=== PATIENT | female | born 1960 | race Caucasian/White ===

== ENCOUNTER → 2018-09-27 16:36 | Outpatient (CLI) | payer OTHER, SELFPAY ==
--- NOTE | 2018-09-27 16:39 | DI.RAD.S_ITS ---
PROCEDURE: XR CHEST 2V INDICATIONS: LEFT RIB AREA PAIN S/P FALL TECHNIQUE: 2 views of the chest were acquired. COMPARISON: [facility], , CHEST 2 VIEW, 05/19/2015, 16:29. FINDINGS: Surgical changes and devices: None. Lungs and pleura: No pleural effusions or pneumothorax. Lungs are clear. Mediastinum: Mediastinal contours are normal. Heart size is normal. Bones and chest wall: No suspicious bony abnormalities. Soft tissues appear unremarkable. IMPRESSION: No acute cardiopulmonary findings. Dictated by: Demetria Palacio M.D. on 09/27/2018 at 16:53 Approved by: Demetria Palacio M.D. on 09/27/2018 at 16:53
== END ==
PROVIDERS: Family Provider Family Medicine; PCP Family Medicine; Visit Provider Family Medicine
DX: R07.81 Pleurodynia (principal)
CPT/HCPCS: 71046

== ENCOUNTER → 2019-07-25 12:08 | Outpatient (CLI) | payer OTHER, SELFPAY ==
--- NOTE | 2019-07-25 | DI.MG.S_ITS ---
BILATERAL DIGITAL SCREENING MAMMOGRAM 3D/2D WITH CAD: 07/25/2019 CLINICAL: Routine screening. Family history of breast cancer. Comparison is made to exams dated: 05/14/2016 mammogram, 03/08/2014 mammogram, and 01/11/2013 mammogram - [facility]. The tissue of both breasts is heterogeneously dense. This may lower the sensitivity of mammography. Current study was also evaluated with a Computer Aided Detection (CAD) system. No significant masses, calcifications, or other findings are seen in either breast. There has been no significant interval change. IMPRESSION: NEGATIVE There is no mammographic evidence of malignancy. A 1 year screening mammogram is recommended. This exam was interpreted at Station ID: [id number]. NOTE: For mammograms, a report in lay terms will be sent to the patient. Approximately 15% of breast malignancies will not be visualized mammographically. In the management of a palpable breast mass, a negative mammogram must not discourage biopsy of a clinically suspicious lesion. Electronically Signed By: Abdi roque/rylan:07/25/2019 19:13:03 letter sent: Normal Exam ACR BI-RADS Category 1: Negative 3341F
== END ==
PROVIDERS: PCP Family Medicine; Visit Provider Family Medicine
DX: Z12.31 Encounter for screening mammogram for malignant neoplasm of breast (principal); Z80.3 Family history of malignant neoplasm of breast
CPT/HCPCS: 77063; 77067

== ENCOUNTER → 2019-07-27 13:42 | Outpatient (CLI) | payer OTHER, SELFPAY ==
--- NOTE | 2019-07-27 | DI.MRI.S_ITS ---
PROCEDURE: MR LUMBAR SPINE WO CON INDICATIONS: LOWER BACK AND LEFT HIP PAIN TECHNIQUE: Noncontrast sagittal T1 spin echo and T2 fast echo, sagittal STIR, axial T1 and T2 fast spin echo through the lumbar spine. In cases with scoliosis, additional coronal T2 fast spin echo may be performed. COMPARISON: [facility], MR, L-SPINE WITHOUT CONTRAST, 11/01/2017, 19:00. FINDINGS: Image quality: Excellent. Alignment and Curvature: Dextroscoliosis of lumbar spine Bone Marrow: No acute fracture. Multilevel degenerative endplate sclerosis and spurring. Diffuse facet arthropathy. Straightening of the normal lordotic curvature. Grade 1 retrolisthesis of L1 on L2, L2 on L3 and L4 on L5 Spinal Cord: Conus medullaris terminates at the T12-L1 level. Visualized cord demonstrates normal signal and size. Paraspinous Soft Tissues: No paravertebral masses. L1-L2: Mild central canal narrowing. Partial effacement of both lateral recesses with asymmetric appearance, left greater than right although unchanged. Moderate left and mild right foraminal narrowing, no interval change. L2-L3: Mild central canal narrowing. Partial effacement of both lateral recesses with asymmetric appearance, left greater right however this appears unchanged. Moderate left foraminal stenosis with nerve root compression. Mild to moderate right foraminal narrowing, no interval change. L3-L4: Severe central canal narrowing which is attributed in part to dorsal epidural lipomatosis broad-based posterior disc bulge. Partial effacement of both lateral recesses with asymmetric appearance, right much greater than left. However this is unchanged since prior study. Moderate to severe left and right foraminal narrowing, although no definite interval progression. L4-L5: Mild central canal narrowing. Partial effacement of both lateral recesses with bilaterally symmetric appearance. Mild left foraminal stenosis. Moderate right foraminal narrowing L5-S1: No central canal or lateral recess narrowing. No foraminal stenosis IMPRESSION: Overall, grossly unchanged examination since 11/01/17 as detailed above by spinal level. Dextroscoliosis as before. Dictated by: Nicolas Ramirez M.D. on 07/27/2019 at 17:13 Approved by: Nicolas Ramirez M.D. on 07/27/2019 at 17:20
--- NOTE | 2019-07-27 | DI.MRI.S_ITS ---
PROCEDURE: MR HIP LT WO CON INDICATIONS: LEFT HIP PAIN TECHNIQUE: Noncontrast coronal T1 spin echo and STIR through the bony pelvis. Coronal and axial T2 fast spin echo with fat saturation, sagittal T1 spin echo, and oblique axial T2 fast spin echo with fat saturation through the hip. COMPARISON: None. FINDINGS: Image quality: Excellent. Bones and joints: Bone marrow of the pelvic ring and proximal femurs show normal signal throughout. No intraosseous lesions or fractures. No avascular necrosis of the femoral heads. Lower lumbar spondylosis and facet arthropathy. Left hip subcutaneous stranding/inflammation of unclear etiology. Tendons and ligaments: The gluteus medius and minimus tendons appear intact, without associated muscle atrophy. The nearby proximal iliotibial band also appears intact. The iliopsoas tendon appears intact, without adjacent bursal fluid collections or evidence for impingement syndrome. The origin of the hamstring tendon is intact at the ischial tuberosity, as well as the associated sacrotuberous ligament. The straight and reflected heads of the rectus femoris muscle origin appear intact, as well as the conjoint tendon. The ligamentum teres appears intact where visualized. Labrum and cartilage: Irregular appearance of the anterosuperior acetabular labrum with internal T2 hyperintense signal, although does not meet strict MR criteria for tear. Additionally, no adjacent chondral loss. The alpha angle of the femur is within normal limits at less than 55 degrees. Soft tissues: Visualized muscles demonstrate normal bulk and internal signal. Quadratus femoris muscle demonstrates no internal edema to suggest ischiofemoral impingement. The proximal sciatic neurovascular bundle appears normal adjacent to the hamstring tendons. No free pelvic fluid. Bladder wall thickness is normal. Genitourinary structures and bowel loops appear normal where visualized. IMPRESSION: Left hip subcutaneous stranding and inflammation of unknown etiology. Please correlate clinically. Probable degenerative signal change involving anterosuperior labrum although does not meet strict MR criteria for tear. Dictated by: Nicolas Ramirez M.D. on 07/27/2019 at 16:02 Approved by: Nicolas Ramirez M.D. on 07/27/2019 at 16:11
== END ==
PROVIDERS: PCP Family Medicine; Visit Provider Family Medicine
DX: M25.552 Pain in left hip (principal); M54.5 Low back pain; M41.9 Scoliosis, unspecified; M48.061 Spinal stenosis, lumbar region without neurogenic claudication
CPT/HCPCS: 72148; 73721

== ENCOUNTER → 2019-08-17 13:46 | Outpatient (CLI) | payer OTHER, SELFPAY | PROVIDERS: PCP Family Medicine; Visit Provider Internal Medicine Rheumatology | DX: M81.0 Age-related osteoporosis without current pathological fracture (principal); Z78.0 Asymptomatic menopausal state; F17.200 Nicotine dependence, unspecified, uncomplicated; Z79.899 Other long term (current) drug therapy | CPT/HCPCS: 77080 ==

== ENCOUNTER → 2021-01-06 16:21 | Outpatient (CLI) | payer OTHER, SELFPAY ==
--- NOTE | 2021-01-06 16:29 | DI.RAD.S_ITS ---
PROCEDURE: XR FOOT RT MIN 3V INDICATIONS: B/L FEET PAIN TENDER 5TH MTPS,RA TECHNIQUE: 3 views of the foot were acquired. COMPARISON: [facility], CR, XR FOOT LT MIN 3V, 01/06/2021, 16:31. FINDINGS: Bones: No fractures or dislocations. No suspicious bony lesions. Mild interphalangeal joint space narrowing with periarticular osteophyte formation. Erosive changes involving the 1st interphalangeal joint and the 4th and 5th MTP joints. Soft tissues: No tibiotalar joint effusion. Achilles tendon appears normal. IMPRESSION: Sequela of radiographic findings suspicious for inflammatory arthropathy. Dictated by: Marky PETERSON Interpreted: Ying Chen MD on 01/06/2021 at 16:55 Approved by: Ying Chen M.D. on 01/07/2021 at 10:10
--- NOTE | 2021-01-06 16:29 | DI.RAD.S_ITS ---
PROCEDURE: XR FOOT LT MIN 3V INDICATIONS: B/L FEET PAIN/TENDER 5TH MTPS/RA TECHNIQUE: 3 views of the foot were acquired. COMPARISON: [facility], CR, XR FOOT RT MIN 3V, 01/06/2021, 16:31. FINDINGS: Bones: No fractures or dislocations. No suspicious bony lesions. Mild diffuse interphalangeal joint space narrowing. Erosive changes involving the 5th MTP joint. Soft tissues: No tibiotalar joint effusion. Achilles tendon appears normal. IMPRESSION: Diffuse joint narrowing the interphalangeal joints and erosive changes of the 5th MCP joint. Inflammatory arthropathy cannot be excluded. Dictated by: Marky PETERSON Interpreted: Ying Chen MD on 01/06/2021 at 16:53 Approved by: Ying Chen M.D. on 01/06/2021 at 17:00
== END ==
PROVIDERS: PCP Family Medicine; Referring Provider Internal Medicine Rheumatology; Visit Provider Internal Medicine Rheumatology
DX: M79.671 Pain in right foot (principal); M79.672 Pain in left foot
CPT/HCPCS: 73630

== ENCOUNTER → 2021-01-29 15:26 | Outpatient (CLI) | payer OTHER, SELFPAY ==
[2021-01-29] MEDS: COVID-19 VACC #1, MRNA(MOD) 100 MCG/0.5 ML VIAL IM (15:31)
== END ==
PROVIDERS: PCP Family Medicine; Visit Provider Internal Medicine
DX: Z23 Encounter for immunization (principal)
CPT/HCPCS: 0011A; 91301

== ENCOUNTER → 2021-02-26 15:36 | Outpatient (CLI) | payer OTHER, SELFPAY ==
[2021-02-26] MEDS: COVID-19 VACC #2, MRNA(MOD) 100 MCG/0.5 ML VIAL IM (15:49)
== END ==
PROVIDERS: PCP Family Medicine; Visit Provider Internal Medicine
DX: Z23 Encounter for immunization (principal)
CPT/HCPCS: 0012A; 91301

== ENCOUNTER → 2021-08-01 15:05 | Outpatient (CLI) | payer OTHER, SELFPAY ==
--- NOTE | 2021-08-01 15:07 | DI.MG.S_ITS ---
BILATERAL DIGITAL SCREENING MAMMOGRAM 3D/2D WITH CAD: 08/01/2021 CLINICAL: Routine screening. Family history of breast cancer. Comparison is made to exams dated: 07/25/2019 mammogram, 05/14/2016 mammogram, and 03/08/2014 mammogram - [facility]. The tissue of both breasts is heterogeneously dense. This may lower the sensitivity of mammography. Current study was also evaluated with a Computer Aided Detection (CAD) system. No significant masses, calcifications, or other findings are seen in either breast. There has been no significant interval change. IMPRESSION: NEGATIVE There is no mammographic evidence of malignancy. A 1 year screening mammogram is recommended. This exam was interpreted at Station ID: [id number]. NOTE: For mammograms, a report in lay terms will be sent to the patient. Approximately 15% of breast malignancies will not be visualized mammographically. In the management of a palpable breast mass, a negative mammogram must not discourage biopsy of a clinically suspicious lesion. Electronically Signed By: Jasvir Sy acr/rylan:08/03/2021 07:52:55 letter sent: Normal Exam ACR BI-RADS Category 1: Negative 3341F
== END ==
PROVIDERS: PCP Family Medicine; Referring Provider Family Medicine; Visit Provider Family Medicine
DX: Z12.31 Encounter for screening mammogram for malignant neoplasm of breast (principal)
CPT/HCPCS: 77063; 77067

== ENCOUNTER → 2022-01-26 10:40 | Outpatient (ROUT) | payer OTHER, SELFPAY ==
[2022-01-26 10:50] LABS: Add Manual Diff / Slide Review NO; Basophils Absolute Auto 0 /uL (0-100); Basophils Percent Auto 0.6 % (0-2); Eosinophils Absolute Auto 100 /uL (0-450); Eosinophils Percent Auto 1.8 % (2-4); Hemoglobin 13.3 g/dL (12.0-16.0); Lymphocytes Absolute Auto 900 /uL (1100-4500); Lymphocytes Percent Auto 12.2 % (25-40); Mean Corpuscular HGB Conc 34.2 % (30-36); Mean Corpuscular Hemoglobin 33.2 PG (26-34); Monocytes Absolute Auto 600 /uL (0-900); Monocytes Percent Auto 8.1 % (3-14); Neutrophils Absolute Auto 5700 /uL (1500-7000); Neutrophils Percent Auto 77.3 % (50-75); Platelet Count 387 X10^3/uL (150-400); Red Blood Cell Count 4.02 X10^6/uL (4.0-5.2); Red Cell Distribution Width 13.2 % (11.6-14.8); White Blood Cell Count 7.4 X10^3/uL (4.5-11.0)
[2022-01-26 11:58] LABS: Vitamin B12 626 pg/mL (239-931)
== END ==
PROVIDERS: PCP Family Medicine; Visit Provider Family Medicine
DX: E53.8 Deficiency of other specified B group vitamins (principal)
CPT/HCPCS: 82607; 85025

== ENCOUNTER → 2022-03-25 11:13 | Outpatient (CLI) | payer OTHER, SELFPAY ==
[2022-03-25 12:14] LABS: COVID19 -Nasal RAPID Negative (Negative)
== END ==
PROVIDERS: PCP Family Medicine; Visit Provider Surgery
DX: Z20.822 Contact with and (suspected) exposure to COVID-19 (principal); Z01.812 Encounter for preprocedural laboratory examination
CPT/HCPCS: 87635; C9803

== ENCOUNTER 2022-03-26 07:33 | Day surgery (SDC) | payer OTHER, SELFPAY ==
[2022-03-26] VITALS (7 sets, daily range): BP systolic 109–122; BP diastolic 62–74; PULSE 71–96; RESP 12–20; TEMP 36.7; O2SAT 95–99
[2022-03-26] MEDS: LACTATED RINGERS 1,000 ML 200 ML IV (08:23)
--- NOTE | 2022-03-26 09:05 | PM.HP.1 ---
History of Present Illness History of Present Illness Date Patient Seen: 03/26/22 Time Patient Seen: 09:05 Chief complaint: SDC Narrative: screening for colon cancer. Last scope was 10 years ago, no symptoms or family history. Patient History Family & Social History Social History: household members spouse Tobacco & Substance use: Smoking Status Never smoker alcohol intake frequency holiday/special occasion Substance Use Type does not use Meds Home Medications and Allergies Home Medications Medication Instructions Recorded Confirmed Type CHOLECALCIFEROL (VITAMIN D3) 400 iu PO QDAY #0 06/08/13 History (Vitamin D3) FOLIC ACID (Folic Acid) 1 mg PO QDAY #0 06/08/13 History IBUPROFEN (#MOTRIN) 600 mg PO QIDPRN #0 06/08/13 History [OMEGA-3 ] #0 06/08/13 History [PROBIOTIC] #0 06/08/13 History [TRANSDERMAL COMPOUND] #0 06/08/13 History adalimumab 40 mg/0.8 mL 40 mg MR #0 06/08/13 History subcutaneous syringe kit (Humira) hydrocodone 5 mg-acetaminophen 300 0 tab PO Q6HP #0 06/08/13 History mg tablet (Vicodin) methotrexate sodium 2.5 mg tablet 2.5 mg PO Q7D@0900 #0 06/08/13 History oxycodone-acetaminophen 5 mg-325 1 tab PO Q4HP PRN #20 tab 01/08/18 Rx mg tablet (Percocet) Allergies Allergy/AdvReac Type Severity Reaction Status Date / Time Sulfa (Sulfonamide Allergy Unknown Verified 03/26/22 07:58 Antibiotics) [SULFA (SULFONAMIDE ANTIBIOTICS)] valdecoxib [From BEXTRA] Allergy Unknown Verified 03/26/22 07:58 Review of Systems Review of Systems ROS: Yes All systems reviewed with the patient and are negative except as otherwise documented Exam Vital Signs (past 8 hours): - 03/26/22 08:18 Temperature 98.1 F Pulse Rate 96 H Respiratory Rate 20 Blood Pressure 121/74 Pulse Oximetry 98 Oxygen Delivery Method Room Air Const General: cooperative and healthy appearing Orientation: alert, awake and oriented x3 HENMT Head: normocephalic and atraumatic Face and sinus: normal facial exam Eyes Periorbital: periorbital findings normal Sclera: sclerae normal Neck Neck: full ROM and trachea midline Chest Chest: normal inspection of the chest Resp Effort & Inspection: normal respiratory effort and able to speak in complete sentences Cardio Rate: regular rate Rhythm: regular rhythm GI Inspection: normal to inspection Palpation: soft Skin General: no rashes or lesions noted and atrophy Neuro General: patient alert, patient awake and patient oriented x3 Cognition: normal cognition Extrem General: full ROM Psych Appearance: grossly normal Mental Status: mental status grossly normal Attitude: cooperative Judgment: judgment good Assessment & Plan Assessment & Plan narrative: Screening colonoscopy colonoscopy with sedation COVID-19 COVID-19 status: Negative Time Spent With Patient Time with patient: less than 30 minutes Critical Care time: I spent a total of [] minutes of critical care time on this patient's care today; this time is exclusive of procedural time.
--- NOTE | 2022-03-26 09:15 | P.OP.COLON_ITS ---
Operative Date/Time/Diagnoses Date of procedure: 03/26/22 Time of procedure: 09:15 Pre-op diagnosis: screening for colon cancer Post-op diagnosis: same Procedure & Clinicians Study performed: colonoscopy with sedation Same procedure as scheduled: Yes Indications: screening for colon cancer Surgeon: Madelyn Rowland Procedure Notes SCOAP/Timeout: done Procedure in detail: Preop diagnosis: Screening colonoscopy Postop diagnosis: Same Operative procedure: Colonoscopy with moderate sedation Surgeon: Luh Rowland MD Anesthetic: Versed 9 mg, fentanyl 125 mcg Findings: Flattening of the mucosa, very little motility. No diverticulosis, no polyps. Procedure: Patient placed in lateral position. Rectal exam is was performed showing normal tone no polyps. No rectal masses. Scope inserted in the rectum advanced to ileocecal valve with minimal difficulty. Insufflation extraction scope and the above findings. Retroflexed was included in the cecum as well as the rectum. Impression: Normal colonoscopy with the exception of notable loss of motility consistent with long-term narcotic use. No diverticulosis, no polyps Plan repeat colonoscopy in 10 years unless otherwise indicated by change in c linical condition Sedation minutes: 20 Specimen(s): none sent Complications: none Impression: No polyps no diverticulosis repeat colonoscopy in 10 years Post-procedure Recommendations: Colonoscopy in 10 years Plan for aftercare: Home Follow up: as needed Disposition: PACU
[2022-03-26] MEDS: fentaNYL 250 MCG/5 ML INJ 125 MCG IV (09:33)
[2022-03-26] MEDS: MIDAZOLAM 5 MG/5 ML VIAL 9 MG IV (09:33)
--- NOTE | 2022-03-26 09:59 | PM.OP.COLON ---
Operative Date/Time/Diagnoses Date of procedure: 03/26/22 Time of procedure: 09:59 Pre-op diagnosis: positive FIT test Post-op diagnosis: same Procedure & Clinicians Study performed: colonoscopy Indications: Positive FIT test Surgeon: Madelyn Rowland Procedure Notes SCOAP/Timeout: done
== END 2022-03-26 10:25 | disposition home or self-care (01) ==
PROVIDERS: PCP Family Medicine; Referring Provider Surgery; Visit Provider Surgery
PROC: 0DJD8ZZ Inspection of Lower Intestinal Tract, Via Natural or Artificial Opening Endoscopic (ICD-10-PCS; CPT 45378; principal; 2022-03-26 09:15)
DX: Z12.11 Encounter for screening for malignant neoplasm of colon (principal)
CPT/HCPCS: 45378; 99152; J2250; J3010

== ENCOUNTER 2022-07-01 18:44 | Emergency (ER) | payer OTHER, SELFPAY ==
[2022-07-01 18:45] VITALS: BP 170/80; PULSE 100; RESP 14; TEMP 36.9; O2SAT 96; BMI 20.6
--- NOTE | 2022-07-01 18:47 | DI.RAD.S_ITS ---
PROCEDURE: XR WRIST LT MIN 3V INDICATIONS: Fall TECHNIQUE: 3 views of the wrist were acquired. COMPARISON: None. FINDINGS: Bones: Mildly displaced and dorsally angulated distal radius fracture extending into the distal radioulnar joint and possibly radial carpal joint. There is a mildly displaced ulnar styloid fracture. Soft tissues: No suspicious soft tissue calcifications. IMPRESSION: Comminuted intra-articular distal radius fracture. Ulnar styloid fracture. Dictated by: Humble Hassan M.D. on 07/01/2022 at 19:14 Approved by: Humble Hassan M.D. on 07/01/2022 at 19:15
--- NOTE | 2022-07-01 19:03 | ED.UPPEXIN ---
HPI - Extremity Injury (Upper) General Chief Complaint: Extremity Injury, Upper Stated Complaint: Thinks left wrist broken Time Seen by Provider: 07/01/22 19:02 Source: patient Mode of arrival: Ambulatory Limitations: no limitations History of Present Illness HPI narrative: This is a 61-year-old female with complaint of ground level fall in potentially broken left wrist. Patient states she was gardening she fell backwards on an outstretched hand and has pain at her left wrist. No numbness or tingling appreciated. It does hurt for her to flex or extend her fingers but she can. She does not appreciate weakness. Patient states she has a history of rheumatoid arthritis, she is had fusion of her right wrist. She is broken her left shoulder before. She states she is on medications for her rheumatoid including methotrexate. Patient states she is allergic to sulfa and valdecoxib. Patient [address] on [facility] [address] She drove herself today. Related Data Home Medications Medication Instructions Recorded Confirmed CHOLECALCIFEROL (VITAMIN D3) 400 iu PO QDAY ##0 06/08/13 (Vitamin D3) FOLIC ACID (Folic Acid) 1 mg PO QDAY ##0 06/08/13 IBUPROFEN (#MOTRIN) 600 mg PO QIDPRN ##0 06/08/13 [OMEGA-3 ] ##0 06/08/13 [PROBIOTIC] ##0 06/08/13 [TRANSDERMAL COMPOUND] ##0 06/08/13 adalimumab 40 mg/0.8 mL 40 mg MR ##0 06/08/13 subcutaneous syringe kit (Humira) hydrocodone 5 mg-acetaminophen 300 0 tab PO Q6HP ##0 06/08/13 mg tablet (Vicodin) methotrexate sodium 2.5 mg tablet 2.5 mg PO Q7D@0900 ##0 06/08/13 Previous Rx's Medication Instructions Recorded oxycodone-acetaminophen 5 mg-325 1 tab PO Q4HP PRN #20 tabs 01/08/18 mg tablet (Percocet) hydrocodone 5 mg-acetaminophen 325 1 tab PO Q6H PRN pain #14 tabs 07/01/22 mg tablet Allergies Allergy/AdvReac Type Severity Reaction Status Date / Time Sulfa (Sulfonamide Allergy Unknown Verified 07/01/22 18:51 Antibiotics) [SULFA (SULFONAMIDE ANTIBIOTICS)] valdecoxib [From BEXTRA] Allergy Unknown Verified 07/01/22 18:51 Review of Systems Review of Systems ROS Unobtainable: All systems reviewed & are unremarkable except as noted in HPI and below Patient History Social History household members: spouse Smoking Status: Current every day smoker Smoking Status: Current every day smoker alcohol intake frequency: holidays/special occasions only Substance Use Type: does not use Exam Narrative Exam Narrative: GENERAL: Alert and oriented x three, female in mild distress. HEENT: Head normocephalic, atraumatic, EOMI, pupils reactive, face symmetric, moist mucous membranes NECK: Supple, full range of motion CARDIOVASCULAR: Regular rate and rhythm without murmurs, rubs or gallops. RESPIRATORY: Breath sounds equal bilaterally, no wheezes rales or rhonchi. ABDOMEN: Soft, nontender. Normoactive bowel sounds all 4 quadrants. No guarding or rebound, rigidity, no mass : No CVA tenderness EXTREMITIES: Normal range of motion, no clubbing. Neurovascularly intact. Patient has mild edema of her left hand. She has swelling at the distal wrist. She is tender over the radius and ulna. 2+ radial pulse. Full flexion extension of the fingers with no issues with adduction or abduction. She has sensation in all 5 fingers with cap refill less than 2 seconds. NEUROLOGICAL: Cranial nerves II through XII grossly intact. Moving all extremities SKIN: Warm, dry, no petechiae, no rashes or lesions. Initial Vital Signs Initial Vital Signs: Vital Signs Temperature 98.4 F 07/01/22 18:45 Pulse Rate 100 H 07/01/22 18:45 Respiratory Rate 14 07/01/22 18:45 Blood Pressure 170/80 H 07/01/22 18:45 Pulse Oximetry 96 07/01/22 18:45 Oxygen Delivery Method 07/01/22 18:45 Procedures Nerve Block Nerve Block 1: Time of procedure: 19:45 Time out performed: Yes Local Anesthetic: lidocaine 1% and with bicarb Amount of anesthesia used (mL): 4 Side: left Nerve Blocks: hematoma block (left distal radius) Procedure Successful: Yes Patient Tolerated Procedure: Well Complications: none Orthopedic Splinting/Casting Injury #1: Time of procedure: 20:00 Side: left Upper Extremity Injury Location: wrist Upper Extremity Immobilizer: sling/shoulder immobilizer and sugar tong splint Post splinting neuro exam: intact Post splinting vascular exam: intact Placed by: Provider Course Orders Ordered: ED Orders 07/01/22 18:47 XR wrist LT min 3V Stat Discontinued Medications Hydrocodone Bitart/Acetaminophen (Hydrocodone/Acet 5/325 Prepack) 1 bottle MISC SEEINSTR ONE Stop: 07/01/22 20:00 Last Admin: 07/01/22 20:05 Dose: 1 bottle Documented By: DANIKA Lidocaine/Sodium Bicarbonate (Lido 1%/Sod Bicarb 8.4% (10ml) 10 Ml Syringe) 10 ml INJ NOW ONE Stop: 07/01/22 19:27 Last Admin: 07/01/22 19:32 Dose: 10 ml Documented By: DANIKA Vital Signs Vital signs: Vital Signs - 8 hr 07/01/22 18:45 07/01/22 20:03 Temperature 98.4 F Pulse Rate 100 H 82 Respiratory Rate 14 Blood Pressure 170/80 H 164/84 H Pulse Oximetry 96 96 Oxygen Delivery Method Room Air Room Air MDM - Extremity Injury (Upper) Imaging Data Extremity x-ray #1: Radiologist's Impression: [address] [address] XRay Report Signed Patient: Irina Gómez MR#: [id number] : 1960 Acct:[id number] Age/Sex: 61 / F Date of Service: 07/01/22 Loc: ED Accession Number: [id number] ?? Procedure: XR wrist LT min 3V Ordering Provider: Leti Hanna D.O. PROCEDURE:? XR WRIST LT MIN 3V ? INDICATIONS: Fall ? TECHNIQUE:? 3 views of the wrist were acquired.? ? COMPARISON:? None. ? FINDINGS:? ? Bones:? Mildly displaced and dorsally angulated distal radius fracture extending into the distal radioulnar joint and possibly radial carpal joint.? There is a mildly displaced ulnar styloid fracture. ? Soft tissues:? No suspicious soft tissue calcifications.? ? IMPRESSION:? Comminuted intra-articular distal radius fracture.? Ulnar styloid fracture.? Dictated by: Humble Hassan M.D. on 07/01/2022 at 19:14 ? ? Approved by: Humble Hassan M.D. on 07/01/2022 at 19:15?? MDM Narrative Medical decision making narrative: This is a 61-year-old female comes emergency department with left wrist injury she has fracture of the distal ulna and radius. Some angulation. Patient had a hematoma block placed with direct pressure over the angulated portion and patient was placed in a sugar-tong splint. She tolerated this well. Plan for follow-up with orthopedic surgery. Patient is neurovascularly intact. Discharge Plan Departure Patient Disposition: Home Clinical Impression: Distal radial fracture, Fracture of ulnar styloid Instructions: DI for Wrist Fracture Activity Restrictions/Additional Instructions: Follow-up with orthopedic surgery. Call tomorrow for an appointment in the next week. Referral is included below. You may take Tylenol up to a 1000 mg every 6 hours and/or ibuprofen up to 600 mg every 6 hours as needed. If inadequate for pain you can take narcotic pain medication as prescribed. But do not take Tylenol with this medication. This medication can make you sleepy do not drive, perform hazardous activities or make any major decisions while taking it. This medication will make you constipated please take a stool softener once to twice daily until stools are soft and regular. Prescription sent to [facility]. Splint Care: Keep splint clean and dry. Elevated affected body part to decrease swelling. OK to use ice pack on the affected body part. Use for 15-20 minutes each time, for 5-6x per day. If you develop worsening pain, numbness, tingling, discoloration of the affected body part, loosen the splint by loosening the LUDY wrap, and either see your doctor for an urgent re-assessment, or return to the Emergency Department. Return to the Emergency Department for any new or worsening symptoms. Prescriptions: New hydrocodone-acetaminophen 5-325 mg tablet 1 tab PO Q6H PRN (Reason: pain) Qty: 14 0RF No Action methotrexate sodium 2.5 MG tablet 2.5 mg PO Q7D@0900 Qty: 0 adalimumab [Humira] 40 MG/0.8 ML syringe kit 40 mg MR Qty: 0 hydrocodone-acetaminophen [Vicodin] 5 MG/300 MG tablet 0 tab PO Q6HP Qty: 0 CHOLECALCIFEROL (VITAMIN D3) (Vitamin D3) 400 iu PO QDAY Qty: 0 FOLIC ACID (Folic Acid) 1 mg PO QDAY Qty: 0 IBUPROFEN (#MOTRIN) 600 mg PO QIDPRN Qty: 0 [OMEGA-3 ] Qty: 0 [PROBIOTIC] Qty: 0 [TRANSDERMAL COMPOUND] Qty: 0 oxycodone-acetaminophen [Percocet] 5 MG/325 MG tablet 1 tab PO Q4HP PRNQty: 20 0RF Referrals: Jose Yu MD [Physician] - Whit Chamorro MD [Primary Care Provider] - Visit Report Forms: Patient Portal/API
[2022-07-01] MEDS: LIDO 1%/SOD BICARB 8.4% (10ML) 10 ML SYRINGE INJ (19:32)
--- NOTE | 2022-07-01 19:43 | PC.NURSE ---
With patient's expressed permission, cut her ring off her finger and gave it to her.
[2022-07-01 20:03] VITALS: BP 164/84; PULSE 82; O2SAT 96
[2022-07-01] MEDS: HYDROCODONE/ACET 5/325 PREPACK 1 BOTTLE MISC (20:05)
== END 2022-07-01 20:06 | disposition home or self-care (01) ==
PROVIDERS: Emergency Provider Emergency Medicine; PCP Family Medicine
DX: S52.572A Other intraarticular fracture of lower end of left radius, initial encounter for closed fracture (principal); S52.612A Displaced fracture of left ulna styloid process, initial encounter for closed fracture; M06.9 Rheumatoid arthritis, unspecified; W18.30XA Fall on same level, unspecified, initial encounter; Y93.H2 Activity, gardening and landscaping; Z79.899 Other long term (current) drug therapy
CPT/HCPCS: 29125; 64450; 73110; 99283; 99284

== ENCOUNTER → 2022-08-04 14:03 | Outpatient (CLI) | payer OTHER, SELFPAY ==
--- NOTE | 2022-08-04 14:04 | DI.MG.S_ITS ---
BILATERAL DIGITAL SCREENING MAMMOGRAM 3D/2D WITH CAD: 08/04/2022 CLINICAL: Routine screening. Family history of breast cancer. Comparison is made to exams dated: 08/01/2021 mammogram, 07/25/2019 mammogram, 05/14/2016 mammogram, and 03/08/2014 mammogram - [facility]. Both breasts are heterogeneously dense, which may obscure small masses (category c / 51-75% glandular tissue). Current study was also evaluated with a Computer Aided Detection (CAD) system. No significant masses, calcifications, or other findings are seen in either breast. There has been no significant interval change. IMPRESSION: NEGATIVE There is no mammographic evidence of malignancy. A 1 year screening mammogram is recommended. Based on the Tyrer Cuzick model (a risk assessment model) the patient's lifetime risk is 10.2% and her 10 year risk is 4.4%. According to the ACR, ACS, and NCCN guidelines, an annual breast MRI exam along with mammogram is recommended if the patient's lifetime risk is 20% or greater. This exam was interpreted at Station ID: [id number]. NOTE: For mammograms, a report in lay terms will be sent to the patient. Approximately 15% of breast malignancies will not be visualized mammographically. In the management of a palpable breast mass, a negative mammogram must not discourage biopsy of a clinically suspicious lesion. Electronically Signed By: Abdi roque/rylan:08/04/2022 15:49:54 letter sent: Normal Exam ACR BI-RADS Category 1: Negative [id number]
== END ==
PROVIDERS: PCP Family Medicine; Referring Provider Family Medicine; Visit Provider Family Medicine
DX: Z12.31 Encounter for screening mammogram for malignant neoplasm of breast (principal); Z80.3 Family history of malignant neoplasm of breast
CPT/HCPCS: 77063; 77067

== ENCOUNTER → 2023-06-02 14:22 | Outpatient (CLI) | payer OTHER, SELFPAY ==
--- NOTE | 2023-06-02 | DI.RAD.S_ITS ---
PROCEDURE: XR HAND RT MIN 3V INDICATIONS: RA PAIN IN WRISTS TECHNIQUE: 3 views of the hand(s) acquired. COMPARISON: [facility], CR, XR HAND LT MIN 3V, 06/02/2023, 14:43. FINDINGS: Bones: No fractures or dislocations. Carpal bones are normally aligned. No suspicious bony lesions. Osteopenia. Carpal joint space narrowing with associated osteophytosis and subchondral cystic change. Mild interphalangeal joint space narrowing with associated osteophytosis. Soft tissues: No suspicious soft tissue calcifications. IMPRESSION: Severe wrist osteoarthritis. Dictated by: Henry Babcock M.D. on 06/02/2023 at 16:48 Approved by: Henry Babcock M.D. on 06/02/2023 at 16:49
--- NOTE | 2023-06-02 | DI.RAD.S_ITS ---
PROCEDURE: XR FOOT LT MIN 3V INDICATIONS: RA PAIN IN FOOT TECHNIQUE: 3 views of the foot were acquired. COMPARISON: [facility], CR, XR FOOT RT MIN 3V, 01/06/2021, 16:31. FINDINGS: Bones: No fractures or dislocations. No suspicious bony lesions. There is a slight appearance of erosive remodeling within the distal aspect of the 5th metatarsal. Scattered IP changes are present. Soft tissues: No tibiotalar joint effusion. Achilles tendon appears normal. Mild soft tissue prominence is present adjacent to the 5th MTP joint. IMPRESSION: Slight appearance of erosive remodeling of the distal 5th metatarsal with adjacent soft tissue edema. Overall appearance is suggestive of arthritis. Dictated by: Marlin Dela Cruz M.D. on 06/02/2023 at 16:39 Approved by: Marlin Dela Cruz M.D. on 06/02/2023 at 16:40
--- NOTE | 2023-06-02 14:34 | DI.RAD.S_ITS ---
PROCEDURE: XR WRIST RT MIN 3V INDICATIONS: RA PAIN IN WRISTS TECHNIQUE: 4 views of the wrist were acquired. COMPARISON: [facility], CR, XR WRIST LT MIN 3V, 06/02/2023, 14:43. [facility], CR, XR WRIST LT MIN 3V, 07/01/2022, 18:46. FINDINGS: Bones: No definite acute fracture or dislocation identified. The bones appear demineralized. Productive changes about the distal ulna. Joint space loss, sclerosis, lucency present throughout multiple carpal bones, erosive change and/or subchondral cystic change possible. Soft tissues: No suspicious soft tissue calcifications. IMPRESSION: No acute fracture or dislocation identified. Deformity of the wrist with pronounced joint space loss, bony lucencies, and sclerosis may be related to provided history of rheumatoid arthritis. Dictated by: Dillon Florentino M.D. on 06/02/2023 at 20:01 Approved by: Dillon Florentino M.D. on 06/02/2023 at 20:05
--- NOTE | 2023-06-02 14:35 | DI.RAD.S_ITS ---
PROCEDURE: XR HAND LT MIN 3V INDICATIONS: RA PAIN IN WRISTS TECHNIQUE: 3 views of the hand(s) acquired. COMPARISON: None. FINDINGS: Bones: No fractures or dislocations. Carpal bones are normally aligned. No suspicious bony lesions. Interphalangeal joint space narrowing with osteophytosis. Soft tissues: No suspicious soft tissue calcifications. IMPRESSION: Mild interphalangeal osteoarthritis. Dictated by: Henry Babcock M.D. on 06/02/2023 at 16:36 Approved by: Henry Babcock M.D. on 06/02/2023 at 16:37
--- NOTE | 2023-06-02 14:35 | DI.RAD.S_ITS ---
PROCEDURE: XR WRIST LT MIN 3V INDICATIONS: RA PAIN IN WRISTS TECHNIQUE: 4 views of the wrist were acquired. COMPARISON: [facility], , XR WRIST LT MIN 3V, 07/01/2022, 18:46. FINDINGS: Bones: ORIF of the distal radius is present. There is good anatomic alignment of previous fracture. Hardware is intact. Fracture lucencies are no longer visualized. Scaphoid view: No visualized fracture. Minimal radiocarpal narrowing. Soft tissues: No suspicious soft tissue calcifications. IMPRESSION: ORIF of the distal radius. Minimal radiocarpal narrowing. Dictated by: Marlin Dela Cruz M.D. on 06/02/2023 at 16:24 Approved by: Marlin Dela Cruz M.D. on 06/02/2023 at 16:32
--- NOTE | 2023-06-02 14:36 | DI.RAD.S_ITS ---
PROCEDURE: XR FOOT RT MIN 3V INDICATIONS: RA PAIN IN FOOT TECHNIQUE: 3 views of the foot were acquired. COMPARISON: [facility], CR, XR FOOT RT MIN 3V, 01/06/2021, 16:31. FINDINGS: Bones: No fractures or dislocations. No suspicious bony lesions. Scattered IP narrowing is present. There is mild erosive deformity at the distal aspect of the 5th metatarsal and to a lesser degree the 4th metatarsal. This is progressive compared to prior exam. Soft tissues: No tibiotalar joint effusion. Achilles tendon appears normal. Prominent soft tissue edema is adjacent to the 5th MTP joint. IMPRESSION: Erosive appearance at the distal 4th and 5th metatarsal suggestive of erosive arthritis. Soft tissue prominence is present adjacent to the 1st MTP joint. Dictated by: Marlin Dela Cruz M.D. on 06/02/2023 at 16:32 Approved by: Marlin Dela Cruz M.D. on 06/02/2023 at 16:33
== END ==
PROVIDERS: PCP Family Medicine; Referring Provider Internal Medicine Rheumatology; Visit Provider Internal Medicine Rheumatology
DX: M06.09 Rheumatoid arthritis without rheumatoid factor, multiple sites (principal); M19.042 Primary osteoarthritis, left hand; M19.031 Primary osteoarthritis, right wrist; Z87.81 Personal history of (healed) traumatic fracture
CPT/HCPCS: 73110; 73130; 73630

== ENCOUNTER → 2023-08-10 12:19 | Outpatient (CLI) | payer OTHER, SELFPAY ==
--- NOTE | 2023-08-10 | DI.MG.S_ITS ---
BILATERAL DIGITAL SCREENING MAMMOGRAM 3D/2D WITH CAD: 08/10/2023 CLINICAL: Routine screening. Family history of breast cancer. Comparison is made to exams dated: 08/04/2022 mammogram, 08/01/2021 mammogram, and 07/25/2019 mammogram - [facility]. Both breasts are heterogeneously dense, which may obscure small masses (category c / 51-75% glandular tissue). Current study was also evaluated with a Computer Aided Detection (CAD) system. No significant masses, calcifications, or other findings are seen in either breast. There has been no significant interval change. IMPRESSION: NEGATIVE There is no mammographic evidence of malignancy. A 1 year screening mammogram is recommended. Based on the Tyrer Cuzick model (a risk assessment model) the patient's lifetime risk is 9.9% and her 10 year risk is 4.4%. According to the ACR, ACS, and NCCN guidelines, an annual breast MRI exam along with mammogram is recommended if the patient's lifetime risk is 20% or greater. This exam was interpreted at Station ID: [id number]. NOTE: For mammograms, a report in lay terms will be sent to the patient. Approximately 15% of breast malignancies will not be visualized mammographically. In the management of a palpable breast mass, a negative mammogram must not discourage biopsy of a clinically suspicious lesion. Electronically Signed By: Dillon pires/rylan:08/10/2023 15:07:39 letter sent: Normal Exam ACR BI-RADS Category 1: Negative 3341F
--- NOTE | 2023-08-10 | DI.RAD.S_ITS ---
Bone Density Report Name: CHAVO SCHROEDER Age: 62 Sex: Female Ethnicity: White Date of : 1960 Indication: postmenopausal osteoporosis; Referring Provider: HERB BAIRES Study: Bone densitometry was performed. Exam Date: August 10, 2023 Accession number: [id number] Bone Density: Region BMD T-score Z-score Classification AP Spine(L1, L3, L4) 1.199 1.3 3.0 Normal Femoral Neck (Left) 0.567 -2.5 -1.1 Osteoporosis Total Hip (Left) 0.688 -2.1 -0.9 Osteopenia Femoral Neck (Right) 0.548 -2.7 -1.3 Osteoporosis Total Hip (Right) 0.698 -2.0 -0.8 Osteopenia Total Hip Mean 0.693 -2.1 -0.9 Osteopenia World Health Organization criteria for BMD impression classify patients as: Normal (T-score at or above -1.0), Osteopenia (T-score between -1.0 and -2.5), or Osteoporosis (T-score at or below -2.5). 10-year Fracture Risk: FRAX not reported because: Some T-score for Spine Total or Hip Total or Femoral Neck at or below -2.5 Previous Exams: -- Region Exam Age BMD T-score BMD Change BMD Change Date g/cm2 vs Baseline vs Previous -- AP Spine (L1,L3-L4) 08/10/2023 62 1.199 1.3 0.268 (28.7%)# 0.268 (28.7%)# 03/21/2014 53 0.932 -1.1 Total Hip(Left) 08/10/2023 62 0.688 -2.1 0.044 (6.8%)# 0.044 (6.8%)# 08/17/2019 58 0.644 -2.4 Total Hip(Right) 08/10/2023 62 0.698 -2.0 0.086 (14.0%)# 0.086 (14.0%)# 08/17/2019 58 0.612 -2.7 -- *Denotes significance at 95% confidence level, LSC for AP Spine = 0.022 g/cm2, LSC for Total Hip = 0.027 g/cm2 # Denotes dissimilar scan types or analysis methods Impression: The patient has osteoporosis, based on the Right Femoral Neck T-score. No significant bone loss was observed. Discussion: INCREASED RISK OF FRACTURE. BONE DENSITY IS UNDESIRABLY LOW AT ONE OR MORE SKELETAL SITES, CONSISTENT WITH POSTMENOPAUSAL OSTEOPOROSIS. This patient's lowest T-score meets the World Health Organization's (WHO) criteria for osteoporosis at one or more sites (T-score -2.5 or below). In untreated patients, the risk of osteoporotic fracture increases approximately two-fold for each 1.0 SD decrease in T-score. Low bone density is not the only risk factor for fracture; also consider factors such as patient's age, frailty or poor health, risk of falling, risk of injury, previous osteoporotic fracture, family history of osteoporosis, cigarette smoking, low body weight, etc. Not everyone with low bone mineral density has osteoporosis; osteomalacia and other metabolic bone disorders should also be considered. Patients who have osteoporosis should be evaluated for specific diseases and conditions (secondary causes) that may cause or contribute to bone loss. The [place] [employer]ocrinologists (AACE) and National Osteoporosis Foundation (NOF) recommend pharmacologic intervention for all postmenopausal women whose T-score is in this range. The patient should follow a healthful lifestyle (good nutrition with adequate calcium and vitamin D, and appropriate weight-bearing exercise). Follow-Up: Consider a repeat BMD and Vertebral Fracture Assessment (VFA) exam in 2 years or sooner if medically necessary, to reassess this patient's status. Reported by: OMER DEGROOT M.D. on 08/10/2023 1:02:00 PM.
== END ==
PROVIDERS: PCP Family Medicine; Referring Provider Internal Medicine Rheumatology; Visit Provider Internal Medicine Rheumatology
DX: M81.0 Age-related osteoporosis without current pathological fracture (principal); Z12.31 Encounter for screening mammogram for malignant neoplasm of breast; Z80.3 Family history of malignant neoplasm of breast; M06.9 Rheumatoid arthritis, unspecified; F17.200 Nicotine dependence, unspecified, uncomplicated; Z79.83 Long term (current) use of bisphosphonates
CPT/HCPCS: 77063; 77067; 77080

== ENCOUNTER → 2024-05-15 11:18 | Outpatient (ROUT) | payer OTHER, SELFPAY ==
[2024-05-15 12:05] LABS: Influenza A - CEPHEID Flu A NEGATIVE (NEGATIVE); Influenza B - CEPHEID Flu B NEGATIVE (NEGATIVE); Respiratory Syncytial Virus Negative (Negative)
[2024-05-15 14:07] LABS: COVID-19 CEPHEID 4-PLEX PCR Negative (Negative)
== END ==
PROVIDERS: PCP Family Medicine; Visit Provider Family Medicine
DX: R06.02 Shortness of breath (principal); R51.9 Headache, unspecified; R50.9 Fever, unspecified
CPT/HCPCS: 0241U

== ENCOUNTER → 2024-08-13 12:06 | Outpatient (CLI) | payer OTHER, SELFPAY ==
--- NOTE | 2024-08-13 | DI.MG.S_ITS ---
BILATERAL DIGITAL SCREENING MAMMOGRAM 3D/2D WITH CAD: 08/13/2024 CLINICAL: Routine screening. Family history of breast cancer. Comparison is made to exams dated: 08/10/2023 mammogram, 08/04/2022 mammogram, and 08/01/2021 mammogram - [facility]. The breasts are heterogeneously dense, which may obscure small masses (category c / 51-75% glandular tissue). Current study was also evaluated with a Computer Aided Detection (CAD) system. No significant masses, calcifications, or other findings are seen in either breast. There has been no significant interval change. IMPRESSION: NEGATIVE There is no mammographic evidence of malignancy. A 1 year screening mammogram is recommended. Based on the Tyrer Cuzick model (a risk assessment model) the patient's lifetime risk is 9.5% and her 10 year risk is 4.4%. According to the ACR, ACS, and NCCN guidelines, an annual breast MRI exam along with mammogram is recommended if the patient's lifetime risk is 20% or greater. This exam was interpreted at Station ID: [id number]. NOTE: For mammograms, a report in lay terms will be sent to the patient. Approximately 15% of breast malignancies will not be visualized mammographically. In the management of a palpable breast mass, a negative mammogram must not discourage biopsy of a clinically suspicious lesion. Electronically Signed By: Shena Turcios M.D., Ph.D. rocky/rylan:08/15/2024 10:00:15 letter sent: Normal Exam ACR BI-RADS Category 1: Negative
--- NOTE | 2024-08-13 | DI.RAD.S_ITS ---
PROCEDURE: XR DEXA AXIAL SKELETON INDICATIONS: OSTEOPOROSIS SCREENING COMPARISON: [facility], , XR DEXA AXIAL SKELETON, 08/10/2023, 12:40. [facility], CR, XR DEXA AXIAL SKELETON, 08/17/2019, 14:23. FINDINGS: Lumbar Spine (L2 excluded due to increased density): Bone mineral density 1.198 g/cm2, T score 1.3, unchanged. Left Hip: Bone mineral density 0.707 g/cm2, T score -1.9, previously -2.1. Left Femoral Neck: Bone mineral density 0.574 g/cm2, T score -2.5, unchanged. Right Hip: Bone mineral density 0.675 g/cm2, T score -2.2, previously -2.0. Right Femoral Neck: Bone mineral density 0.485 g/cm2, T score -3.3, previously -2.7. Fracture Risk Calculation (when applicable): Not reported due to osteoporosis diagnosis. (T score greater or equal to -1.0 to: NORMAL) (T score from -1.1 to -2.4: OSTEOPENIA) (T score less than or equal to -2.5: OSTEOPOROSIS) IMPRESSION: Osteoporosis. Follow-up guidelines as follows: Osteoporosis: Consider a repeat DEXA and Vertebral Fracture Assessment (VFA) exam in 2 years or sooner if medically necessary, to reassess this patient's status. Osteopenia: Consider a repeat DEXA in 2-3 years to reassess this patient's status, or if there is a new clinical indication. Normal: Consider a repeat DEXA in 5 years or sooner, or if there is a new clinical indication. All treatment decisions require clinical judgment and consideration of individual patient factors, including patient preferences, comorbidities, previous drug use, risk factors not captured in the FRAX model (e.g., frailty, falls, vitamin D deficiency, increased bone turnover, interval significant decline in bone density ) and possible under- or over-estimation of fracture risk by FRAX. In addition, the NOF Guide recommends that FDA-approved medical therapies be considered in postmenopausal women and men age >= 50 years with a: * Hip or vertebral (clinical or morphometric) fracture * T-score of <=-2.5 at the spine or hip * Ten-year fracture probability by FRAX of >= 3% for hip fracture or >=20% for major osteoporotic fracture. People with diagnosed cases of osteoporosis or at high risk for fracture should have regular bone mineral density tests. For patients eligible for Medicare, routine testing is allowed once every 2 years. The testing frequency can be increased to one year for patients who have rapidly progressing disease, those who are receiving or discontinuing medical therapy to restore bone mass, or have additional risk factors. Dictated by: Henry Babcock M.D. on 08/13/2024 at 15:55 Approved by: Henry Babcock M.D. on 08/13/2024 at 15:56
== END ==
PROVIDERS: PCP Family Medicine; Referring Provider Family Medicine; Visit Provider Family Medicine
DX: R92.333 Mammographic heterogeneous density, bilateral breasts (principal); Z12.31 Encounter for screening mammogram for malignant neoplasm of breast; Z80.3 Family history of malignant neoplasm of breast; M81.0 Age-related osteoporosis without current pathological fracture
CPT/HCPCS: 77063; 77067; 77080

== ENCOUNTER → 2024-11-21 08:19 | Outpatient (CLI) | payer OTHER, SELFPAY ==
--- NOTE | 2024-11-21 08:21 | DI.US.S_ITS ---
PROCEDURE: US ABDOMEN COMPLETE INDICATIONS: ELEVATED LFTS TECHNIQUE: Real-time scanning was performed of the abdominal and retroperitoneal organs, with image documentation. COMPARISON: None. FINDINGS: Liver: Liver is normal in size and homogeneous in echotexture. Gallbladder: Nondilated. No stones or sludge. Normal gallbladder wall thickness. No pericholecystic fluid. Negative sonographic More's sign. Biliary ducts: Intrahepatic bile ducts are non-dilated. Extrahepatic bile duct caliber measures 6 mm. Normal is 6-7 mm or less in diameter, or 10 mm or less post-cholecystectomy. Pancreas: Visualized portions of the pancreas are sonographically normal. Spleen: Spleen is normal in size and homogeneous in echotexture. Measures 7.4 cm. Kidneys: Kidneys are normal in size and echotexture. Right kidney measures 9.9 cm long; left kidney measures 9.3 cm long. No hydronephrosis. Left kidney superior pole nonobstructing calculus measuring 0.5 cm. No solid masses. Aorta: Visualized aorta is normal in caliber at less than 3 cm. Iliacs: Proximal common iliac arteries are normal in caliber at less than 2.5 cm. IVC: Intrahepatic inferior vena cava is patent. Miscellaneous: No free abdominal fluid. IMPRESSION: 1. Sonographic appearance of the liver is within normal limits. 2. No acute cholecystitis. No gallstones. 3. Probable small nonobstructing left kidney stone measuring 0.5 cm. Dictated by: Abdi Dawn M.D. on 11/21/2024 at 14:31 Approved by: Abdi Dawn M.D. on 11/21/2024 at 14:33
== END ==
PROVIDERS: PCP Family Medicine; Referring Provider Family Medicine; Visit Provider Family Medicine
DX: R79.89 Other specified abnormal findings of blood chemistry (principal)
CPT/HCPCS: 76700

== ENCOUNTER → 2024-12-19 15:13 | Outpatient (CLI) | payer OTHER, SELFPAY ==
--- NOTE | 2024-12-19 15:15 | DI.CT.S_ITS ---
PROCEDURE: CT KIDNEY URETER BLADDER (KUB) INDICATIONS: NEPHROLITHIASIS TECHNIQUE: Axial sections were acquired from the lung bases to the pubic symphysis. Coronal and sagittal reformats were performed. For radiation dose reduction, the following was used: automated exposure control, adjustment of mA and/or kV according to patient size. COMPARISON: None. FINDINGS: Image quality: Diagnostic. Lower Chest: Small focus of consolidation in the medial left lower lobe. URINARY: Right Kidney: 2 millimeter nonobstructing nephrolithiasis. No hydronephrosis. Right Ureter: No hydroureter. Left Kidney: 4 millimeter nonobstructing nephrolithiasis. No hydronephrosis. Left Ureter: No hydroureter. Bladder: Normal wall thickness. No stones. ABDOMEN: Liver: No contour-deforming solid mass. Gallbladder: No radiopaque gallstones or wall thickening. Biliary ducts: No biliary dilation. Pancreas: No ductal dilation. Spleen: Size is within normal limits. Adrenal Glands: No adrenal nodules. Stomach and Bowel: Normal colonic caliber, without significant wall thickening. Normal appendix. Colonic diverticulosis without evidence of diverticulitis. Peritoneum: No abnormal intraperitoneal fluid. No free air. Ventral Wall: Small umbilical hernia containing fat. Abdominal Nodes: No enlarged retroperitoneal or mesenteric lymph nodes. Vessels: Aorta and inferior vena cava are normal in size. PELVIS: Pelvic Organs: Unremarkable. Pelvic Nodes: Unremarkable. Miscellaneous: No inguinal hernias are seen. Bones: Degenerative disc disease of the lumbar spine.. IMPRESSION: Small burden of bilateral, nonobstructing nephrolithiasis. Dictated by: Henry Babcock M.D. on 12/20/2024 at 9:33 Approved by: Henry Babcock M.D. on 12/20/2024 at 9:42
== END ==
LOC: CT 15:14
PROVIDERS: PCP Family Medicine; Referring Provider Family Medicine; Visit Provider Family Medicine
DX: N20.0 Calculus of kidney (principal); K57.90 Diverticulosis of intestine, part unspecified, without perforation or abscess without bleeding; K42.9 Umbilical hernia without obstruction or gangrene
CPT/HCPCS: 74176